=== PATIENT | female | born 1985 | race African-American/Black ===

== ENCOUNTER 2021-02-15 10:56 | Emergency (ER) | payer MEDICAID ==
[~2021-02-15] VITALS: Ht 188 cm; Wt 105.0 kg
[2021-02-15] MEDS ORDERED: ACETAMINOPHEN 325MG TABLET PO ONE (11:15)
[2021-02-15] MEDS ORDERED: CLINDAMYCIN 600 MG in DEXTROSE 5% WATER 50 ML IV ONE (11:15)
[2021-02-15] MEDS ORDERED: CLIN300C12 MT (11:23)
[2021-02-15] MEDS ORDERED: CHLO3800 TP (11:23)
[2021-02-15] MEDS ORDERED: CLINDAMYCIN 600MG PREMIX 50 ML IV SCH (12:00)
[2021-02-15 12:33] VITALS: BP 124/72
== END 2021-02-15 12:34 | disposition home or self-care (01) ==
LOC: ER 10:56
DX: K04.7 Periapical abscess without sinus (principal)
CPT/HCPCS: 96365; 99284; J3490; J7060